=== PATIENT | male | born 1955 | race Two or more races ===

== ENCOUNTER 2023-06-25 04:24 | Inpatient (IN) | payer OTHER ==
[~2023-06-25] VITALS: Ht 188 cm; Wt 131.5 kg
[2023-06-25] MEDS ORDERED: LOSARTAN POTASS50 MG PO (04:28)
[2023-06-25] MEDS ORDERED: CILOSTAZOL50 MG PO (04:30)
[2023-06-25 05:20] LABS: ABG PH 7.379 (7.35-7.45); ABG PO2 92.7 mmHg (80-100); BASE EXCESS -5.6 mmol/l; BICARBONATE 18.4 mmol/l (23-25); SaO2 96.8 %; Tco2 19.4 mmol/l; allen test SATISFACTORY; o2 32 %; puncture site RADIAL LEFT
[2023-06-25 06:00] LABS: INR 1.26; PARTIAL THROMBOPLASTIN TIME 23.8 SECONDS (22.0-34.0)
[2023-06-25 06:05] LABS: ALBUMIN 3.2 gm/dL (3.4-5.0); BILIRUBIN TOTAL 2.04 mg/dL (0.3-1.2); CALCIUM 9.2 mg/dL (8.5-10.1); CREATININE SERUM 1.11 mg/dL (0.70-1.30); GFR 66.48; GLOBULINA 4.1 G/DL (2.4-3.5); POTASSIUM 4.79 mEq/L (3.5-5.1); TOTAL PROTEIN 7.3 gm/dL (6.4-8.2)
[2023-06-25 06:22] LABS: HEMATOCRIT 37.7 % (39.0-48.0); HEMOGLOBIN 12.4 g/dL (13-16.00); PLATELET COUNT 188 K/uL (150-450); RED BLOOD COUNT 4.29 M/uL (4.00-6.00); RED CELL DISTRIBUTION WIDTH 16.7 % (11.5-14.5)
[2023-06-25 07:22] LABS: URINE APPEARANCE Clear; URINE BILIRRUBIN Negative (NEGATIVE); URINE BLOOD Moderate; URINE COLOR Dark Yellow; URINE GLUCOSE Negative (NEGATIVE); URINE LEUKOCYTE Moderate; URINE NITRATE Negative
[2023-06-25 07:24] LABS: URINE BACTERIA 401.9 uL (0.0-1933); URINE EPITHELIAL CELLS 15.7 uL (0.0-38.8); URINE RBC 230.3 uL (0.0-20.8); URINE WBC 229.9 uL (0.0-23.2)
[2023-06-25 07:37] LABS: URINE PROTEIN 100 (NEGATIVE)
[2023-06-25 07:39] LABS: URINE MUCUS MODERATE
[2023-06-25 14:02] LABS: INR 1.22; PARTIAL THROMBOPLASTIN TIME 25.9 SECONDS (22.0-34.0); PROTHROMBIN TIME 12.6 SECONDS (9.0-11.5)
[2023-06-25 14:11] LABS: CHOL HDL RATIO 1.8 (0-5.0); CKMB 1.2 NG/ML (0.5-3.6); MAGNESIUM 2.1 mg/dL (1.8-2.4)
[2023-06-28 06:48] LABS: HEMATOCRIT 36.3 % (39.0-48.0); MEAN CELL VOLUME 87.9 fL (80.0-100.00); PLATELET COUNT 160 K/uL (150-450); RED BLOOD COUNT 4.12 M/uL (4.00-6.00); RED CELL DISTRIBUTION WIDTH 16.8 % (11.5-14.5)
[2023-06-28 07:40] LABS: BILIRUBIN TOTAL 1.58 mg/dL (0.3-1.2); CALCIUM 8.8 mg/dL (8.5-10.1); CREATININE SERUM 0.99 mg/dL (0.70-1.30); GFR 75.87; GLOBULINA 3.4 G/DL (2.4-3.5); POTASSIUM 4.24 mEq/L (3.5-5.1); TOTAL PROTEIN 6.4 gm/dL (6.4-8.2)
== END 2023-07-01 11:02 | disposition home or self-care (01) | DRG 292 ==
LOC: ER 04:24 → SEC-K 14:03 → MEDI 14:03
PROVIDERS: General Practice; Specialist; ADMIT Internal Medicine; ATTEND Internal Medicine
PROC: B246ZZZ Ultrasonography of Right and Left Heart (ICD-10-PCS; principal; 2023-06-25)
PROC: 4A12X4Z Monitoring of Cardiac Electrical Activity, External Approach (ICD-10-PCS; 2023-06-26)
DX: I50.23 Acute on chronic systolic (congestive) heart failure (principal); I48.20 Chronic atrial fibrillation, unspecified; I11.0 Hypertensive heart disease with heart failure; I20.89 Other forms of angina pectoris